=== PATIENT | female | born 2000 | race Caucasian/White ===

== ENCOUNTER 2022-07-23 01:15 | Inpatient (IN) ==
[2022-07-23] MEDS ORDERED: LIDOCAINE 1% LOCAL 20 ML VIAL INFIL PRN (02:50)
[2022-07-23] MEDS ORDERED: OXYTOCIN 30 UNITS/500 ML BAG IV PRN ×3 (02:50→20:44)
--- NOTE | 2022-07-23 03:12 | History & Physical Report ---
Date of Service July 23, 2022 Assessment & Plan (1) SROM (spontaneous rupture of membranes): (2) Encounter for trial of labor: Plan 21 yo at 40 1/7 wga is admitted w/ SROM VSS Fetus cat 1 SROM - pt had noted that she had desired during pnc. Reviewed tolac consent including 1% risk of uterine rupture and potential catastrophic consequences following. Reviewed tolac vs repeat CS after initial review of tolac consent. Reviewed if does desire tolac, she is certainly able to change her mind at any point and opt for CS as well. After extensive discussion with pt and fob, pt opted for trial of labor. Consent signed GBS neg epidural PRN History of Present Illness Chief Complaint: ROM Primary Care Provider: JACKIE PCP 21 yo at 40 1/7 wga presents w/ c/o LOF since 1145pm. Was sleeping and noted a gush of fluid and has continued leaking since then. +FM, denies VB. Did have q10min ctx prior to ROM, continues to have q10 but more painful PNI: CSx1, confirmed LTCS LSIL pap at [facility] Past [facility] HX: G1 2020, pLTCS at 35 wks due to BPP /8 G2 current denies hx STIs 12/2021 LSIL Allergies Allergy/AdvReac Type Severity Reaction Status Date / Time No Known Allergies Allergy Verified 07/22/22 08:39 Home Medications Medication Instructions Recorded Confirmed Type prenat.vits,nancy,[id number] 1 tab PO HS 12/02/21 07/23/22 History promethazine 25 mg tablet 25 mg PO Q6H PRN nausea and 12/05/21 07/23/22 Rx vomiting #20 tabs ondansetron 4 mg disintegrating 4 mg PO Q6H PRN nausea and 12/06/21 07/23/22 Rx tablet vomiting #12 tabs albuterol sulfate 90 mcg/actuation 1 - 2 inh inhalation UD PRN ASTHMA 07/12/22 07/23/22 History aerosol inhaler ferrous sulfate 325 mg (65 mg 325 mg PO QPM 07/12/22 07/23/22 History iron) tablet (iron) Patient History Medical History Asthma Low iron borderline Surgical History History of placement of ear tubes Hx of section Status post colposcopy Family History Mother Diabetes Grandfather (Maternal) Diabetes Grandfather (Paternal) Diabetes Social History Smoking Status: Never smoker Second Hand Exposure: No; Do You Dip or Chew Tobacco: No; Hx Alcohol Use: No Hx Substance Use: No Preferred Language: Bahamian Communication Ability: Effective 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 Other Information That Helps Us Care for You: No Feels Safe at Home: Yes Safety Concerns: Feels Safe At This Time Assistive Devices: Glasses Physical Exam Genitourinary: OB Exam Abdomen: + vertex Manual OB Exam: + cervical dilation (1.5), + cervical effacement 50%, + station -2 and + amniotic fluid (+nitrazine, pooling, ferning) OB Exam Monitor Tracing: + external FHT monit or used, + external uterine monitor used (q9-10) and + category I (140/mod/+accel/-decel) Results & Data Vital Signs (Past 12 Hours) Vital Signs Temp Pulse BP 07/23/22 01:41 98.2 F 07/23/22 02:01 108 H 118/74 Laboratory Results OB Labs: Blood Type A Positive 12/15/21 Antibody Screen NEGATIVE 12/15/21 Hemoglobin 11.4 g/dl (12.0-16.0) L 07/09/22 Hematocrit 33.6 % (37.0-47.0) L 07/09/22 Mean Corpuscular Volume 88.2 fL (80.0-100.0) 07/09/22 Platelet Count 203 K/uL (130-400) 07/09/22 Rubella IgG Antibody Immune (Immune) 12/15/21 Rapid Plasma Reagin Nonreactive (Nonreactive) 12/15/21 Hepatitis B Surface Antigen. NON-REACTIVE (NON-REACTIVE) 12/15/21 Hepatitis C Antibody (EIA) NON-REACTIVE (NON-REACTIVE) 12/15/21 HIV (1&2) Ag and Ab Confirmation NON-REACTIVE (NON-REACTIVE) 12/15/21 Glucose 1 Hour 50 gm Load 109 mg/dl (70-130) 04/25/22 Maternal Serum Alpha Fetoprotein 39.8 ng/mL 02/14/22 OB Optional Labs: Chlamydia trachomatis RNA Not Detected (NotDetected) 12/15/21 Neisseria gonorrhoeae RNA Not Detected (NotDetected) 12/15/21 Alpha Fetoprotein Triple Screen SEE NOTE 02/14/22 low risk cfdna neg cf/sma GBS neg Diagnostic Findings ant plac Coding Level of Care Code None Diagnoses SROM (spontaneous rupture of membranes) Encounter for trial of labor
[2022-07-23 03:42] LABS: Hematocrit (blood only) 33.6 % (37.0-47.0); Hemoglobin 11.8 g/dl (12.0-16.0); Mean Corpuscular Hemoglobin 31.1 pg (25.0-34.0); Mean Corpuscular Hgb Conc 35.1 g/dL (32.0-36.0); Mean Corpuscular Volume 88.7 fL (80.0-100.0); Mean Platelet Volume 10.9 fL (9.4-12.4); Platelet Count 217 K/uL (130-400); RDW Coefficient of Variation 15.6 % (11.5-14.5); RDW Standard Deviation 50.6 fL (36.4-46.3); Red Blood Count 3.79 M/uL (4.20-5.40); White Blood Count 8.96 K/ul (4.8-10.8)
[2022-07-23] MEDS: LACTATED RINGER'S 1,000 ML IV PRN ×3 (06:06→12:34)
[2022-07-23] MEDS ORDERED: SODIUM CHLORIDE 0.9% PF INJ 10 ML VIAL ONE (06:11)
[2022-07-23] MEDS ORDERED: fentaNYL citrate PF 100 MCG/2 ML VIAL ONE (06:11)
[2022-07-23] MEDS ORDERED: ePHEDrine sulfate 50 MG/ML AMP ONE (06:12)
[2022-07-23] MEDS ORDERED: LIDOCAINE 2%/EPINEPHRINE 1:200,000 20 ML PF ONE (06:12)
[2022-07-23] MEDS ORDERED: BUPIVACAINE 0.25% PF 30 ML VIAL ONE (06:12)
[2022-07-23] MEDS ORDERED: fentaNYL 2MCG/ML ROPIVACAINE 1.25MG/ML 100 ML BAG EPI ONE (06:12)
--- NOTE | 2022-07-23 07:01 | Anesthesiology Consultation ---
Date of Service July 23, 2022 Assessment & Plan Chart Review Chart Review: Acceptable Risk for Surgery, Patient NOT seen in Pre Admission Testing and Acceptable Risk for Labor Epidural Consults Requested none ASA ASA2 Proposed Anesthesia Anesthesia Type: Labor Epidural and CSE Risk / Benefits Reviewed With: PT / POA / Parent / Guardian, Accepts Plan and Informed Consent Obtained History Height/Weight Height: 5 ft Weight: 75.75 kg Allergies Allergy/AdvReac Type Severity Reaction Status Date / Time No Known Allergies Allergy Verified 07/22/22 08:39 Medications Home Medications Medication Instructions Recorded Confirmed Last Taken prenat.vits,nancy,[id number] 1 tab PO HS 12/02/21 07/23/22 07/16/22 22:30 promethazine 25 mg tablet 25 mg PO Q6H PRN nausea and 12/05/21 07/23/22 Unknown vomiting #20 tabs ondansetron 4 mg disintegrating 4 mg PO Q6H PRN nausea and 12/06/21 07/23/22 Unknown tablet vomiting #12 tabs albuterol sulfate 90 mcg/actuation 1 - 2 inh inhalation UD PRN ASTHMA 07/12/22 07/23/22 Unknown aerosol inhaler ferrous sulfate 325 mg (65 mg 325 mg PO QPM 07/12/22 07/23/22 07/16/22 22:30 iron) tablet (iron) Active Medications Generic Name Dose Route Start Last Admin Trade Name Freq PRN Reason Stop Dose Admin Lactated Ringer's 1,000 mls @ 125 mls/hr 07/23/22 02:50 07/23/22 06:45 Lr IV 07/25/22 02:49 125 mls/hr .Q8H PRN Infusion L&D Protocol Protocol NPO Date Last Intake of Fluids: 07/23/22 Time Last Intake of Fluids: 06:30 Date Last Intake of Solids: 07/22/22 Time Last Intake of Solids: 22:00 Past Medical History Medical History Asthma Low iron borderline Exercise / Class Metabolic Activity II 4-5 Yardwork/Stairs/Walk up hill Past Family History Family History Mother Diabetes Grandfather (Maternal) Diabetes Grandfather (Paternal) Diabetes Past Surgical History Surgical History History of placement of ear tubes Hx of section Status post colposcopy Past Anesthesia History No Hx of Anesthesia Complications and No Family Hx of Anesthesia Complications History of PONV No Hx of PONV and No Hx of Motion Sickness Social History Smoking Status: Never smoker Do You Dip or Chew Tobacco: No Hx Alcohol Use: No Hx Substance Use: No substance use type: does not use Physical Exam Vital Signs Last Vital Signs Temp 36.8 C 07/23/22 06:25 Pulse 82 07/23/22 06:54 BP 122/70 07/23/22 06:36 Pulse Ox 99 07/23/22 06:54 Constitutional + obese; no acute distress ENMT Mouth: no dentition abnormality Thyromental Distance: < 3.5 Finger Breadths Mallampati Class: II Neck normal visual inspection and trachea midline; neck extension not limited Respiratory normal respiratory effort Auscultation: lungs clear to auscultation bilaterally Cardiovascular Rate/Rhythm: regular rate and regular rhythm Heart Sounds: no murmur Musculoskeletal Spine: lumbar spine normal to inspection; normal cervical ROM and no pain with cervical ROM Extremities: full ROM of extremities Neurologic moves all extremities Motor/Sensory: no sensory deficit Psychiatric Orientation: alert and oriented x 3 Testing Laboratory Results 07/23/22 03:07 Blood Type A Positive 07/23/22 03:07 Antibody Screen NEGATIVE 07/23/22 03:07
[2022-07-23] MEDS ORDERED: BUPIVACAINE 0.25% PF 30 ML VIAL EPI PRN (07:34)
[2022-07-23] MEDS ORDERED: NALOXONE HCL 0.4 MG/1 ML VIAL/CARP IV PRN (07:34)
[2022-07-23] MEDS ORDERED: ROPIVACAINE 0.5% PF 5 MG/ML 20 ML VIAL EPI PRN (07:34)
[2022-07-23] MEDS ORDERED: fentaNYL citrate PF 100 MCG/2 ML VIAL EPI PRN (07:34)
[2022-07-23] MEDS ORDERED: SODIUM CHLORIDE 0.9% PF INJ 10 ML VIAL EPI PRN (07:34)
[2022-07-23] MEDS ORDERED: fentaNYL citrate PF 100 MCG/2 ML VIAL EPI STA (07:34)
[2022-07-23] MEDS ORDERED: fentaNYL 2MCG/ML ROPIVACAINE 1.25MG/ML 100 ML BAG EPI PRN (07:34)
[2022-07-23] MEDS ORDERED: ePHEDrine sulfate 50 MG/ML AMP IV PRN (07:34)
[2022-07-23] MEDS ORDERED: diphenhydrAMINE 50 MG/ML VIAL IV PRN (07:34)
[2022-07-23] MEDS ORDERED: LIDOCAINE 2%/EPINEPHRINE 1:200,000 20 ML PF EPI STA (07:34)
[2022-07-23] MEDS ORDERED: NALOXONE HCL 1 MG in SODIUM CHLORIDE 0.9% 1000ML 1,000 ML IV PRN (07:34)
[2022-07-23] MEDS ORDERED: BUPIVACAINE 0.25% PF 30 ML VIAL EPI STA (07:34)
[2022-07-23] MEDS ORDERED: SODIUM CHLORIDE 0.9% PF INJ 10 ML VIAL EPI STA (07:34)
[2022-07-23] MEDS ORDERED: NALBUPHINE HCL INJ 10 MG/ML AMP IV PRN (07:34)
[2022-07-23] MEDS ORDERED: LIDOCAINE 2% MPF LOCAL 5 ML VIAL EPI PRN (07:34)
--- NOTE | 2022-07-23 08:09 | Labor Progress Brief Note ---
Date of Service July 23, 2022 Subjective comfortable w/ epidural Assessment & Plan (1) SROM (spontaneous rupture of membranes): (2) Encounter for trial of labor: Plan 21 yo at 40 1/7 wga is admitted w/ SROM VSS Fetus cat 1 SROM - small progress from earlier, pt did get more uncomfortable w/ ctx before so got epidural and they are starting to get closer now. Will discuss pit w/ oncoming provider GBS neg epidural in place Admission and Anticipated Discharge Date Admission Date: July 23, 2022 Physical Exam Genitourinary: Manual OB Exam: + cervical dilation (tight 2-3), + cervical effacement 70% and + station -2 OB Exam Monitor Tracing: + external FHT monitor used, + external uterine monitor used (q8) and + category I (140/mod/+accel/-decel) Results & Data Vital Signs (Past 12 Hours) Vital Signs Temp Pulse BP Pulse Ox 07/23/22 01:41 98.2 F 07/23/22 08:04 91 H 98 07/23/22 07:59 91 H 99 07/23/22 07:56 90 113/59 L 07/23/22 07:54 93 H 99 07/23/22 07:49 82 99 07/23/22 07:47 88 108/55 L 07/23/22 07:44 94 H 100 07/23/22 07:39 90 98 07/23/22 07:36 97 H 107/60 07/23/22 07:34 96 H 107/56 L 98 07/23/22 07:32 86 106/56 L 07/23/22 07:30 93 H 105/59 L 07/23/22 07:29 98 H 99 07/23/22 07:28 93 H 100/56 L 07/23/22 07:26 93 H 102/60 07/23/22 07:24 93 H 106/61 99 07/23/22 07:22 95 H 102/58 L 07/23/22 07:19 89 99 07/23/22 07:20 76 106/61 07/23/22 07:18 85 112/60 07/23/22 07:16 88 120/76 07/23/22 07:14 92 H 120/77 99 07/23/22 07:09 106 H 99 07/23/22 07:04 102 H 98 07/23/22 06:59 88 98 07/23/22 06:54 82 99 07/23/22 06:49 89 98 07/23/22 06:44 100 H 98 07/23/22 06:39 94 H 98 07/23/22 06:36 84 122/70 07/23/22 06:34 86 99 07/23/22 06:25 98.2 F 07/23/22 06:29 90 98 07/23/22 06:24 82 99 07/23/22 06:19 85 100 07/23/22 04:15 98.2 F 07/23/22 02:01 108 H 118/74 Coding Level of Care Code None Diagnoses SROM (spontaneous rupture of membranes) Encounter for trial of labor
--- NOTE | 2022-07-23 08:46 | Labor Progress Brief Note ---
Date of Service July 23, 2022 Subjective comfortable with epidural Assessment & Plan (1) Encounter for trial of labor: Plan Discussed current situation. Can expectantly manage but unable to know how long until active labor ensues. Discussed pitocin augmentation and r/b/se associated with this. Not contraindicated in DEEPA. Continue to monitor closely . Discussed the potential need for iupc. Patient agreeable to pit. fetus categ ory one. Admission and Anticipated Discharge Date Admission Date: July 23, 2022 Physical Exam Physical Exam: cx--deferred as just recetnly checked toco--q5-8min efm--145 with mod variability, accels to 160s, no decels Results & Data Vital Signs (Past 12 Hours) Vital Signs Temp Pulse Resp BP Pulse Ox 07/23/22 01:41 36.8 C 07/23/22 08:39 87 98 07/23/22 08:36 100 H 104/65 07/23/22 08:34 100 H 97 07/23/22 08:29 89 97 07/23/22 08:26 101 H 102/57 L 07/23/22 08:24 87 98 07/23/22 08:19 85 97 07/23/22 08:16 92 H 105/57 L 07/23/22 08:14 100 H 98 07/23/22 08:09 78 96 07/23/22 07:00 18 07/23/22 07:00 36.8 C 18 07/23/22 08:06 93 H 110/60 07/23/22 08:04 91 H 98 07/23/22 07:59 91 H 99 07/23/22 07:56 90 113/59 L 07/23/22 07:54 93 H 99 07/23/22 07:49 82 99 07/23/22 07:47 88 108/55 L 07/23/22 07:44 94 H 100 07/23/22 07:39 90 98 07/23/22 07:36 97 H 107/60 07/23/22 07:34 96 H 107/56 L 98 07/23/22 07:32 86 106/56 L 07/23/22 07:30 93 H 18 105/59 L 07/23/22 07:29 98 H 99 07/23/22 07:28 93 H 100/56 L 07/23/22 07:26 93 H 102/60 07/23/22 07:24 93 H 106/61 99 07/23/22 07:22 95 H 102/58 L 07/23/22 07:19 89 99 07/23/22 07:20 76 106/61 07/23/22 07:18 85 112/60 07/23/22 07:16 88 120/76 07/23/22 07:14 92 H 120/77 99 07/23/22 07:09 106 H 99 07/23/22 07:04 102 H 98 07/23/22 06:59 88 98 07/23/22 06:54 82 99 07/23/22 06:49 89 98 07/23/22 06:44 100 H 98 07/23/22 06:39 94 H 98 07/23/22 06:36 84 122/70 07/23/22 06:34 86 99 07/23/22 06:25 36.8 C 07/23/22 06:29 90 98 07/23/22 06:24 82 99 07/23/22 06:19 85 100 07/23/22 04:15 36.8 C 07/23/22 02:01 108 H 118/74 Coding Level of Care Code None Diagnoses Encounter for trial of labor
--- NOTE | 2022-07-23 13:46 | Communication Note ---
Date of Service: July 23, 2022 @ 2988 , patient's epidural catheter was bolused w/ 12 ml 0.17% bupivacaine + 100 mcgs fentanyl for pain 8-12/20. Negative aspiration w/ incremental injection s.
--- NOTE | 2022-07-23 13:49 | Labor Progress Brief Note ---
Date of Service July 23, 2022 Subjective comfortable after redose Assessment & Plan (1) Encounter for trial of labor: Plan continue current management. Fetus category one. Admission and Anticipated Discharge Date Admission Date: July 23, 2022 Physical Exam Physical Exam: cx--5-6/90/-2 toco--q2-5min, pit at 13 efm--140s with mod variability, accels to 160s, no decels Results & Data Vital Signs (Past 12 Hours) Vital Signs Temp Pulse Resp BP Pulse Ox 07/23/22 13:44 104 H 99 07/23/22 13:39 99 H 99 07/23/22 13:37 109 H 104/57 L 07/23/22 13:34 90 98 07/23/22 13:29 89 97 07/23/22 13:24 90 98 07/23/22 13:19 93 H 97 07/23/22 13:14 92 H 97 07/23/22 13:09 98 H 98 07/23/22 13:07 95 H 104/62 07/23/22 13:04 91 H 98 07/23/22 12:59 97 H 97 07/23/22 12:54 90 98 07/23/22 12:52 97 H 125/66 07/23/22 12:49 92 H 97 07/23/22 12:44 98 H 98 07/23/22 12:39 95 H 99 07/23/22 12:38 91 H 123/78 07/23/22 12:34 87 98 07/23/22 12:30 20 07/23/22 12:30 20 07/23/22 12:29 86 97 07/23/22 12:24 96 H 98 07/23/22 12:23 93 H 114/76 07/23/22 12:19 95 H 97 07/23/22 12:14 95 H 98 07/23/22 12:09 92 H 97 07/23/22 12:07 99 H 112/75 07/23/22 12:04 88 99 07/23/22 12:00 20 07/23/22 12:00 20 07/23/22 11:59 92 H 97 07/23/22 11:30 18 07/23/22 11:30 18 07/23/22 11:54 86 99 07/23/22 11:53 92 H 114/76 07/23/22 11:49 94 H 99 07/23/22 11:44 89 98 07/23/22 11:39 82 98 07/23/22 11:37 85 110/63 07/23/22 11:34 85 99 07/23/22 11:29 87 99 07/23/22 11:24 86 99 07/23/22 11:22 82 102/57 L 07/23/22 11:19 89 99 07/23/22 11:14 83 99 07/23/22 11:09 84 98 07/23/22 11:07 80 97/55 L 07/23/22 11:04 80 98 07/23/22 11:00 18 07/23/22 11:00 36.8 C 18 07/23/22 10:59 80 98 07/23/22 10:30 18 07/23/22 10:30 18 07/23/22 10:56 80 98/54 L 07/23/22 10:54 81 99 07/23/22 10:49 76 99 07/23/22 10:47 77 104/57 L 07/23/22 10:44 80 99 07/23/22 10:39 86 99 07/23/22 10:37 82 116/71 07/23/22 10:34 80 99 07/23/22 10:29 96 H 100 07/23/22 10:26 75 102/54 L 07/23/22 10:24 82 99 07/23/22 10:19 83 99 07/23/22 10:16 86 93/52 L 07/23/22 10:14 83 98 07/23/22 10:00 16 07/23/22 10:00 16 07/23/22 10:09 83 99 07/23/22 10:08 86 96/56 L 07/23/22 10:04 84 99 07/23/22 09:59 95 H 99 07/23/22 09:57 85 108/65 07/23/22 09:30 18 07/23/22 09:30 18 07/23/22 09:54 91 H 96 07/23/22 09:49 78 97 07/23/22 09:46 87 115/67 07/23/22 09:44 87 97 07/23/22 09:39 85 97 07/23/22 09:36 88 107/62 07/23/22 09:34 92 H 98 07/23/22 09:29 85 97 07/23/22 09:26 92 H 107/64 07/23/22 09:24 89 98 07/23/22 09:19 97 H 98 07/23/22 09:17 84 105/64 07/23/22 09:14 85 98 07/23/22 09:00 18 07/23/22 09:00 36.6 C 18 07/23/22 09:09 105 H 98 07/23/22 09:07 100 H 119/78 07/23/22 09:04 87 100 07/23/22 08:59 94 H 99 07/23/22 08:57 84 109/64 07/23/22 08:54 99 H 98 07/23/22 08:49 87 98 07/23/22 08:46 94 H 104/64 07/23/22 08:30 18 07/23/22 08:30 18 07/23/22 08:44 107 H 98 07/23/22 08:00 16 07/23/22 08:00 16 07/23/22 08:39 87 98 07/23/22 08:36 100 H 104/65 07/23/22 08:34 100 H 97 07/23/22 08:29 89 97 07/23/22 08:26 101 H 102/57 L 07/23/22 08:24 87 98 07/23/22 08:19 85 97 07/23/22 08:16 92 H 105/57 L 07/23/22 08:14 100 H 98 07/23/22 08:09 78 96 07/23/22 07:00 18 07/23/22 07:00 36.8 C 18 07/23/22 08:06 93 H 110/60 07/23/22 08:04 91 H 98 07/23/22 07:59 91 H 99 07/23/22 07:56 90 113/59 L 07/23/22 07:54 93 H 99 07/23/22 07:49 82 99 07/23/22 07:47 88 108/55 L 07/23/22 07:44 94 H 100 07/23/22 07:39 90 98 07/23/22 07:36 97 H 107/60 07/23/22 07:34 96 H 107/56 L 98 05/13/23 07:32 86 106/56 L 07/23/22 07:30 93 H 18 105/59 L 07/23/22 07:29 98 H 99 07/23/22 07:28 93 H 100/56 L 07/23/22 07:26 93 H 102/60 07/23/22 07:24 93 H 106/61 99 07/23/22 07:22 95 H 102/58 L 07/23/22 07:19 89 99 07/23/22 07:20 76 106/61 07/23/22 07:18 85 112/60 07/23/22 07:16 88 120/76 07/23/22 07:14 92 H 120/77 99 07/23/22 07:09 106 H 99 07/23/22 07:04 102 H 98 07/23/22 06:59 88 98 07/23/22 06:54 82 99 07/23/22 06:49 89 98 07/23/22 06:44 100 H 98 07/23/22 06:39 94 H 98 07/23/22 06:36 84 122/70 07/23/22 06:34 86 99 07/23/22 06:25 36.8 C 07/23/22 06:29 90 98 07/23/22 06:24 82 99 07/23/22 06:19 85 100 07/23/22 04:15 36.8 C 07/23/22 02:01 108 H 118/74 Coding Level of Care Code None Diagnoses Encounter for trial of labor
[2022-07-23] MEDS: ONDANSETRON INJ 2 MG/ML 2 ML VIAL IV PRN ×2 (14:27→19:55)
--- NOTE | 2022-07-23 16:03 | Labor Progress Brief Note ---
Date of Service July 23, 2022 Subjective comfortable Assessment & Plan (1) Encounter for trial of labor: Plan continue current management. iupc placed to determine mvus. Making slow but positive changed. fetus category one. Admission and Anticipated Discharge Date Admission Date: July 23, 2022 Physical Exam Physical Exam: cx--7/100/-2 iupc placed, pit at 19 efm--150s with mod varaiblity, accels to 170s, no decels. Results & Data Vital Signs (Past 12 Hours) Vital Signs Temp Pulse Resp BP Pulse Ox 07/23/22 15:59 109 H 97 07/23/22 15:54 98 07/23/22 15:54 99 H 07/23/22 15:54 88 108/59 L 07/23/22 15:49 106 H 97 07/23/22 15:44 94 H 96 07/23/22 15:39 105 H 97 07/23/22 15:34 107 H 97 07/23/22 15:30 20 07/23/22 15:30 20 07/23/22 15:29 88 97 07/23/22 15:24 91 H 95 07/23/22 15:22 87 113/57 L 07/23/22 15:19 92 H 96 07/23/22 15:14 87 95 07/23/22 15:09 88 96 07/23/22 15:07 87 105/61 07/23/22 14:30 18 07/23/22 14:30 18 07/23/22 15:00 20 07/23/22 15:00 37.0 C 20 07/23/22 15:04 95 H 95 07/23/22 14:59 81 96 07/23/22 14:54 94 H 96 07/23/22 14:52 83 107/60 07/23/22 14:49 86 96 07/23/22 14:44 92 H 98 07/23/22 14:00 20 07/23/22 14:00 20 07/23/22 14:39 92 H 96 07/23/22 14:38 88 140/62 07/23/22 14:34 89 97 07/23/22 14:29 101 H 98 07/23/22 14:24 101 H 99 07/23/22 14:23 92 H 122/74 07/23/22 14:19 98 H 99 07/23/22 13:30 20 05 13:30 20 05 13:01 20 05 13:01 36.7 C 20 07/23/22 14:14 101 H 99 07/23/22 14:09 101 H 128/77 99 07/23/22 14:04 107 H 99 07/23/22 13:59 98 H 98 05 13:54 107 H 98 07/23/22 13:52 96 H 112/62 07/23/22 13:49 99 H 98 07/23/22 13:44 104 H 99 07/23/22 13:39 99 H 99 07/23/22 13:37 109 H 104/57 L 07/23/22 13:34 90 98 07/23/22 13:29 89 97 07/23/22 13:24 90 98 07/23/22 13:19 93 H 97 07/23/22 13:14 92 H 97 07/23/22 13:09 98 H 98 07/23/22 13:07 95 H 104/62 05 13:04 91 H 98 07/23/22 12:59 97 H 97 07/23/22 12:54 90 98 07/23/22 12:52 97 H 125/66 07/23/22 12:49 92 H 97 07/23/22 12:44 98 H 98 07/23/22 12:39 95 H 99 07/23/22 12:38 91 H 123/78 07/23/22 12:34 87 98 07/23/22 12:30 20 07/23/22 12:30 20 07/23/22 12:29 86 97 07/23/22 12:24 96 H 98 07/23/22 12:23 93 H 114/76 05 12:19 95 H 97 07/23/22 12:14 95 H 98 07/23/22 12:09 92 H 97 07/23/22 12:07 99 H 112/75 05 12:04 88 99 07/23/22 12:00 20 07/23/22 12:00 20 07/23/22 11:59 92 H 97 07/23/22 11:30 18 05 11:30 18 07/23/22 11:54 86 99 05 11:53 92 H 114/76 07/23/22 11:49 94 H 99 07/23/22 11:44 89 98 07/23/22 11:39 82 98 07/23/22 11:37 85 110/63 07/23/22 11:34 85 99 07/23/22 11:29 87 99 07/23/22 11:24 86 99 07/23/22 11:22 82 102/57 L 07/23/22 11:19 89 99 07/23/22 11:14 83 99 07/23/22 11:09 84 98 07/23/22 11:07 80 97/55 L 07/23/22 11:04 80 98 07/23/22 11:00 18 07/23/22 11:00 36.8 C 18 07/23/22 10:59 80 98 07/23/22 10:30 18 07/23/22 10:30 18 07/23/22 10:56 80 98/54 L 07/23/22 10:54 81 99 07/23/22 10:49 76 99 07/23/22 10:47 77 104/57 L 07/23/22 10:44 80 99 07/23/22 10:39 86 99 07/23/22 10:37 82 116/71 07/23/22 10:34 80 99 07/23/22 10:29 96 H 100 07/23/22 10:26 75 102/54 L 07/23/22 10:24 82 99 07/23/22 10:19 83 99 07/23/22 10:16 86 93/52 L 07/23/22 10:14 83 98 07/23/22 10:00 16 07/23/22 10:00 16 07/23/22 10:09 83 99 07/23/22 10:08 86 96/56 L 07/23/22 10:04 84 99 07/23/22 09:59 95 H 99 07/23/22 09:57 85 108/65 07/23/22 09:30 18 07/23/22 09:30 18 07/23/22 09:54 91 H 96 07/23/22 09:49 78 97 07/23/22 09:46 87 115/67 07/23/22 09:44 87 97 07/23/22 09:39 85 97 07/23/22 09:36 88 107/62 07/23/22 09:34 92 H 98 07/23/22 09:29 85 97 07/23/22 09:26 92 H 107/64 07/23/22 09:24 89 98 07/23/22 09:19 97 H 98 07/23/22 09:17 84 105/64 07/23/22 09:14 85 98 07/23/22 09:00 18 07/23/22 09:00 36.6 C 18 07/23/22 09:09 105 H 98 07/23/22 09:07 100 H 119/78 07/23/22 09:04 87 100 07/23/22 08:59 94 H 99 07/23/22 08:57 84 109/64 07/23/22 08:54 99 H 98 07/23/22 08:49 87 98 07/23/22 08:46 94 H 104/64 07/23/22 08:30 18 07/23/22 08:30 18 07/23/22 08:44 107 H 98 07/23/22 08:00 16 07/23/22 08:00 16 07/23/22 08:39 87 98 07/23/22 08:36 100 H 104/65 07/23/22 08:34 100 H 97 07/23/22 08:29 89 97 07/23/22 08:26 101 H 102/57 L 07/23/22 08:24 87 98 07/23/22 08:19 85 97 07/23/22 08:16 92 H 105/57 L 07/23/22 08:14 100 H 98 07/23/22 08:09 78 96 07/23/22 07:00 18 07/23/22 07:00 36.8 C 18 07/23/22 08:06 93 H 110/60 07/23/22 08:04 91 H 98 07/23/22 07:59 91 H 99 07/23/22 07:56 90 113/59 L 07/23/22 07:54 93 H 99 07/23/22 07:49 82 99 07/23/22 07:47 88 108/55 L 07/23/22 07:44 94 H 100 07/23/22 07:39 90 98 07/23/22 07:36 97 H 107/60 05/23 07:34 96 H 107/56 L 98 07/23/22 07:32 86 106/56 L 07/23/22 07:30 93 H 18 105/59 L 07/23/22 07:29 98 H 99 07/23/22 07:28 93 H 100/56 L 07/23/22 07:26 93 H 102/60 07/23/22 07:24 93 H 106/61 99 07/23/22 07:22 95 H 102/58 L 07/23/22 07:19 89 99 07/23/22 07:20 76 106/61 07/23/22 07:18 85 112/60 07/23/22 07:16 88 120/76 07/23/22 07:14 92 H 120/77 99 07/23/22 07:09 106 H 99 07/23/22 07:04 102 H 98 07/23/22 06:59 88 98 07/23/22 06:54 82 99 07/23/22 06:49 89 98 07/23/22 06:44 100 H 98 07/23/22 06:39 94 H 98 07/23/22 06:36 84 122/70 07/23/22 06:34 86 99 07/23/22 06:25 36.8 C 07/23/22 06:29 90 98 07/23/22 06:24 82 99 07/23/22 06:19 85 100 07/23/22 04:15 36.8 C Coding Level of Care Code None Diagnoses Encounter for trial of labor
--- NOTE | 2022-07-23 17:33 | Labor Progress Brief Note ---
Date of Service July 23, 2022 Subjective Patient feeling pressure in her bottom manny with contraction. Assessment & Plan (1) Encounter for trial of labor: Plan continues to make progress, labor down. fetus category one. Will push in about an hour. Admission and Anticipated Discharge Date Admission Date: July 23, 2022 Physical Exam Physical Exam: cx--small bit of cx to the right, 0 station toco--q2-4min, pit at 21, Mvus about 180s efm--150s with mod variability, early decels with some contractions., + accels, +scalp stim Results & Data Vital Signs (Past 12 Hours) Vital Signs Temp Pulse Resp BP Pulse Ox 07/23/22 17:29 117 H 98 07/23/22 17:24 96 H 99 07/23/22 17:23 111 H 119/64 07/23/22 17:19 93 H 99 07/23/22 17:00 20 07/23/22 17:00 37.0 C 20 07/23/22 17:14 103 H 98 07/23/22 17:09 110 H 99 07/23/22 17:08 100 H 117/67 07/23/22 17:04 90 99 07/23/22 16:59 110 H 98 07/23/22 16:54 91 H 98 07/23/22 16:53 82 103/55 L 07/23/22 16:49 90 97 07/23/22 16:44 96 H 96 07/23/22 16:39 88 97 07/23/22 16:37 100 H 100/57 L 07/23/22 16:30 20 07/23/22 16:30 20 07/23/22 16:34 88 97 07/23/22 16:00 20 07/23/22 16:00 20 07/23/22 16:29 103 H 98 07/23/22 16:24 94 H 97 07/23/22 16:22 96 H 103/57 L 07/23/22 16:19 86 98 07/23/22 16:14 91 H 97 07/23/22 16:09 108 H 98 07/23/22 16:08 92 H 97/53 L 07/23/22 16:04 92 H 98 07/23/22 15:59 109 H 97 07/23/22 15:54 98 05/13/23 15:54 99 H 07/23/22 15:54 88 108/59 L 07/23/22 15:49 106 H 97 07/23/22 15:44 94 H 96 07/23/22 15:39 105 H 97 07/23/22 15:34 107 H 97 07/23/22 15:30 20 07/23/22 15:30 20 07/23/22 15:29 88 97 07/23/22 15:24 91 H 95 07/23/22 15:22 87 113/57 L 07/23/22 15:19 92 H 96 07/23/22 15:14 87 95 07/23/22 15:09 88 96 07/23/22 15:07 87 105/61 07/23/22 14:30 18 07/23/22 14:30 18 07/23/22 15:00 20 07/23/22 15:00 37.0 C 20 07/23/22 15:04 95 H 95 07/23/22 14:59 81 96 07/23/22 14:54 94 H 96 07/23/22 14:52 83 107/60 07/23/22 14:49 86 96 07/23/22 14:44 92 H 98 07/23/22 14:00 20 07/23/22 14:00 20 07/23/22 14:39 92 H 96 07/23/22 14:38 88 140/62 07/23/22 14:34 89 97 07/23/22 14:29 101 H 98 07/23/22 14:24 101 H 99 07/23/22 14:23 92 H 122/74 07/23/22 14:19 98 H 99 07/23/22 13:30 20 07/23/22 13:30 20 07/23/22 13:01 20 07/23/22 13:01 36.7 C 20 07/23/22 14:14 101 H 99 07/23/22 14:09 101 H 128/77 99 07/23/22 14:04 107 H 99 07/23/22 13:59 98 H 98 07/23/22 13:54 107 H 98 07/23/22 13:52 96 H 112/62 07/23/22 13:49 99 H 98 07/23/22 13:44 104 H 99 07/23/22 13:39 99 H 99 07/23/22 13:37 109 H 104/57 L 07/23/22 13:34 90 98 05 13:29 89 97 07/23/22 13:24 90 98 07/23/22 13:19 93 H 97 07/23/22 13:14 92 H 97 07/23/22 13:09 98 H 98 07/23/22 13:07 95 H 104/62 07/23/22 13:04 91 H 98 07/23/22 12:59 97 H 97 07/23/22 12:54 90 98 07/23/22 12:52 97 H 125/66 07/23/22 12:49 92 H 97 07/23/22 12:44 98 H 98 07/23/22 12:39 95 H 99 07/23/22 12:38 91 H 123/78 07/23/22 12:34 87 98 07/23/22 12:30 20 07/23/22 12:30 20 07/23/22 12:29 86 97 07/23/22 12:24 96 H 98 07/23/22 12:23 93 H 114/76 07/23/22 12:19 95 H 97 07/23/22 12:14 95 H 98 07/23/22 12:09 92 H 97 07/23/22 12:07 99 H 112/75 07/23/22 12:04 88 99 07/23/22 12:00 20 07/23/22 12:00 20 07/23/22 11:59 92 H 97 07/23/22 11:30 18 07/23/22 11:30 18 07/23/22 11:54 86 99 07/23/22 11:53 92 H 114/76 07/23/22 11:49 94 H 99 07/23/22 11:44 89 98 07/23/22 11:39 82 98 07/23/22 11:37 85 110/63 07/23/22 11:34 85 99 07/23/22 11:29 87 99 07/23/22 11:24 86 99 07/23/22 11:22 82 102/57 L 07/23/22 11:19 89 99 07/23/22 11:14 83 99 07/23/22 11:09 84 98 07/23/22 11:07 80 97/55 L 07/23/22 11:04 80 98 07/23/22 11:00 18 07/23/22 11:00 36.8 C 18 07/23/22 10:59 80 98 07/23/22 10:30 18 07/23/22 10:30 18 07/23/22 10:56 80 98/54 L 07/23/22 10:54 81 99 07/23/22 10:49 76 99 07/23/22 10:47 77 104/57 L 07/23/22 10:44 80 99 07/23/22 10:39 86 99 07/23/22 10:37 82 116/71 07/23/22 10:34 80 99 07/23/22 10:29 96 H 100 07/23/22 10:26 75 102/54 L 07/23/22 10:24 82 99 07/23/22 10:19 83 99 07/23/22 10:16 86 93/52 L 07/23/22 10:14 83 98 07/23/22 10:00 16 07/23/22 10:00 16 07/23/22 10:09 83 99 07/23/22 10:08 86 96/56 L 07/23/22 10:04 84 99 07/23/22 09:59 95 H 99 07/23/22 09:57 85 108/65 07/23/22 09:30 18 07/23/22 09:30 18 07/23/22 09:54 91 H 96 07/23/22 09:49 78 97 07/23/22 09:46 87 115/67 07/23/22 09:44 87 97 07/23/22 09:39 85 97 07/23/22 09:36 88 107/62 07/23/22 09:34 92 H 98 07/23/22 09:29 85 97 07/23/22 09:26 92 H 107/64 07/23/22 09:24 89 98 07/23/22 09:19 97 H 98 07/23/22 09:17 84 105/64 07/23/22 09:14 85 98 07/23/22 09:00 18 07/23/22 09:00 36.6 C 18 07/23/22 09:09 105 H 98 07/23/22 09:07 100 H 119/78 07/23/22 09:04 87 100 07/23/22 08:59 94 H 99 07/23/22 08:57 84 109/64 07/23/22 08:54 99 H 98 07/23/22 08:49 87 98 07/23/22 08:46 94 H 104/64 07/23/22 08:30 18 07/23/22 08:30 18 07/23/22 08:44 107 H 98 07/23/22 08:00 16 07/23/22 08:00 16 07/23/22 08:39 87 98 07/23/22 08:36 100 H 104/65 07/23/22 08:34 100 H 97 07/23/22 08:29 89 97 07/23/22 08:26 101 H 102/57 L 07/23/22 08:24 87 98 07/23/22 08:19 85 97 07/23/22 08:16 92 H 105/57 L 07/23/22 08:14 100 H 98 07/23/22 08:09 78 96 07/23/22 07:00 18 07/23/22 07:00 36.8 C 18 07/23/22 08:06 93 H 110/60 07/23/22 08:04 91 H 98 07/23/22 07:59 91 H 99 07/23/22 07:56 90 113/59 L 07/23/22 07:54 93 H 99 07/23/22 07:49 82 99 07/23/22 07:47 88 108/55 L 07/23/22 07:44 94 H 100 07/23/22 07:39 90 98 07/23/22 07:36 97 H 107/60 07/23/22 07:34 96 H 107/56 L 98 07/23/22 07:32 86 106/56 L 07/23/22 07:30 93 H 18 105/59 L 07/23/22 07:29 98 H 99 07/23/22 07:28 93 H 100/56 L 07/23/22 07:26 93 H 102/60 07/23/22 07:24 93 H 106/61 99 07/23/22 07:22 95 H 102/58 L 07/23/22 07:19 89 99 07/23/22 07:20 76 106/61 07/23/22 07:18 85 112/60 07/23/22 07:16 88 120/76 07/23/22 07:14 92 H 120/77 99 07/23/22 07:09 106 H 99 07/23/22 07:04 102 H 98 07/23/22 06:59 88 98 07/23/22 06:54 82 99 07/23/22 06:49 89 98 07/23/22 06:44 100 H 98 07/23/22 06:39 94 H 98 07/23/22 06:36 84 122/70 07/23/22 06:34 86 99 07/23/22 06:25 36.8 C 07/23/22 06:29 90 98 07/23/22 06:24 82 99 07/23/22 06:19 85 100 Coding Level of Care Code None Diagnoses Encounter for trial of labor
--- NOTE | 2022-07-23 18:48 | Labor Progress Brief Note ---
Date of Service July 23, 2022 Subjective Needs to push Assessment & Plan (1) Encounter for trial of labor: Plan begin second stage. fetus category one. Admission and Anticipated Discharge Date Admission Date: July 23, 2022 Physical Exam Physical Exam: cx--c/c/0-+1 toco--q3-5min, pit at 21 efm--150s with mod variability, accels to 170s, no decels Results & Data Vital Signs (Past 12 Hours) Vital Signs Temp Pulse Resp BP Pulse Ox 07/23/22 18:44 106 H 98 07/23/22 18:39 102 H 99 07/23/22 18:38 106 H 92 07/23/22 18:37 104 H 125/69 07/23/22 18:34 93 H 98 07/23/22 18:30 18 07/23/22 18:30 18 07/23/22 18:29 107 H 99 07/23/22 18:24 106 H 98 07/23/22 18:23 93 H 133/80 07/23/22 18:19 96 H 100 07/23/22 18:14 101 H 100 07/23/22 18:09 95 H 99 07/23/22 18:08 89 124/70 07/23/22 18:00 20 07/23/22 18:00 20 07/23/22 18:04 104 H 98 07/23/22 18:00 20 07/23/22 18:00 20 07/23/22 17:59 94 H 98 07/23/22 17:54 94 H 99 07/23/22 17:52 96 H 130/65 07/23/22 17:49 100 H 100 07/23/22 17:30 18 07/23/22 17:30 18 07/23/22 17:44 96 H 100 07/23/22 17:39 112 H 99 07/23/22 17:38 100 H 131/81 07/23/22 17:34 106 H 100 07/23/22 17:29 117 H 98 07/23/22 17:24 96 H 99 07/23/22 17:23 111 H 119/64 07/23/22 17:19 93 H 99 07/23/22 17:00 20 07/23/22 17:00 37.0 C 20 07/23/22 17:14 103 H 98 07/23/22 17:09 110 H 99 07/23/22 17:08 100 H 117/67 07/23/22 17:04 90 99 07/23/22 16:59 110 H 98 07/23/22 16:54 91 H 98 07/23/22 16:53 82 103/55 L 07/23/22 16:49 90 97 07/23/22 16:44 96 H 96 07/23/22 16:39 88 97 07/23/22 16:37 100 H 100/57 L 07/23/22 16:30 20 07/23/22 16:30 20 07/23/22 16:34 88 97 07/23/22 16:00 20 07/23/22 16:00 20 07/23/22 16:29 103 H 98 07/23/22 16:24 94 H 97 07/23/22 16:22 96 H 103/57 L 07/23/22 16:19 86 98 07/23/22 16:14 91 H 97 07/23/22 16:09 108 H 98 07/23/22 16:08 92 H 97/53 L 07/23/22 16:04 92 H 98 07/23/22 15:59 109 H 97 07/23/22 15:54 98 07/23/22 15:54 99 H 07/23/22 15:54 88 108/59 L 07/23/22 15:49 106 H 97 07/23/22 15:44 94 H 96 07/23/22 15:39 105 H 97 07/23/22 15:34 107 H 97 07/23/22 15:30 20 07/23/22 15:30 20 07/23/22 15:29 88 97 07/23/22 15:24 91 H 95 07/23/22 15:22 87 113/57 L 07/23/22 15:19 92 H 96 07/23/22 15:14 87 95 07/23/22 15:09 88 96 07/23/22 15:07 87 105/61 07/23/22 14:30 18 07/23/22 14:30 18 07/23/22 15:00 20 07/23/22 15:00 37.0 C 20 07/23/22 15:04 95 H 95 07/23/22 14:59 81 96 07/23/22 14:54 94 H 96 07/23/22 14:52 83 107/60 07/23/22 14:49 86 96 07/23/22 14:44 92 H 98 07/23/22 14:00 20 07/23/22 14:00 20 07/23/22 14:39 92 H 96 07/23/22 14:38 88 140/62 07/23/22 14:34 89 97 07/23/22 14:29 101 H 98 07/23/22 14:24 101 H 99 07/23/22 14:23 92 H 122/74 07/23/22 14:19 98 H 99 07/23/22 13:30 20 07/23/22 13:30 20 07/23/22 13:01 20 07/23/22 13:01 36.7 C 20 07/23/22 14:14 101 H 99 07/23/22 14:09 101 H 128/77 99 07/23/22 14:04 107 H 99 07/23/22 13:59 98 H 98 07/23/22 13:54 107 H 98 07/23/22 13:52 96 H 112/62 07/23/22 13:49 99 H 98 07/23/22 13:44 104 H 99 07/23/22 13:39 99 H 99 07/23/22 13:37 109 H 104/57 L 07/23/22 13:34 90 98 07/23/22 13:29 89 97 07/23/22 13:24 90 98 07/23/22 13:19 93 H 97 07/23/22 13:14 92 H 97 07/23/22 13:09 98 H 98 07/23/22 13:07 95 H 104/62 05 13:04 91 H 98 07/23/22 12:59 97 H 97 07/23/22 12:54 90 98 07/23/22 12:52 97 H 125/66 05 12:49 92 H 97 07/23/22 12:44 98 H 98 07/23/22 12:39 95 H 99 07/23/22 12:38 91 H 123/78 05 12:34 87 98 05 12:30 20 07/23/22 12:30 20 07/23/22 12:29 86 97 07/23/22 12:24 96 H 98 07/23/22 12:23 93 H 114/76 07/23/22 12:19 95 H 97 07/23/22 12:14 95 H 98 07/23/22 12:09 92 H 97 07/23/22 12:07 99 H 112/75 07/23/22 12:04 88 99 07/23/22 12:00 20 07/23/22 12:00 20 07/23/22 11:59 92 H 97 07/23/22 11:30 18 07/23/22 11:30 18 07/23/22 11:54 86 99 07/23/22 11:53 92 H 114/76 07/23/22 11:49 94 H 99 07/23/22 11:44 89 98 07/23/22 11:39 82 98 07/23/22 11:37 85 110/63 07/23/22 11:34 85 99 07/23/22 11:29 87 99 07/23/22 11:24 86 99 07/23/22 11:22 82 102/57 L 07/23/22 11:19 89 99 07/23/22 11:14 83 99 07/23/22 11:09 84 98 07/23/22 11:07 80 97/55 L 07/23/22 11:04 80 98 07/23/22 11:00 18 07/23/22 11:00 36.8 C 18 07/23/22 10:59 80 98 07/23/22 10:30 18 07/23/22 10:30 18 07/23/22 10:56 80 98/54 L 07/23/22 10:54 81 99 07/23/22 10:49 76 99 07/23/22 10:47 77 104/57 L 07/23/22 10:44 80 99 07/23/22 10:39 86 99 07/23/22 10:37 82 116/71 07/23/22 10:34 80 99 07/23/22 10:29 96 H 100 07/23/22 10:26 75 102/54 L 07/23/22 10:24 82 99 07/23/22 10:19 83 99 07/23/22 10:16 86 93/52 L 07/23/22 10:14 83 98 07/23/22 10:00 16 07/23/22 10:00 16 07/23/22 10:09 83 99 07/23/22 10:08 86 96/56 L 07/23/22 10:04 84 99 07/23/22 09:59 95 H 99 07/23/22 09:57 85 108/65 07/23/22 09:30 18 07/23/22 09:30 18 07/23/22 09:54 91 H 96 07/23/22 09:49 78 97 07/23/22 09:46 87 115/67 07/23/22 09:44 87 97 07/23/22 09:39 85 97 07/23/22 09:36 88 107/62 07/23/22 09:34 92 H 98 07/23/22 09:29 85 97 07/23/22 09:26 92 H 107/64 07/23/22 09:24 89 98 07/23/22 09:19 97 H 98 07/23/22 09:17 84 105/64 07/23/22 09:14 85 98 07/23/22 09:00 18 07/23/22 09:00 36.6 C 18 07/23/22 09:09 105 H 98 07/23/22 09:07 100 H 119/78 07/23/22 09:04 87 100 07/23/22 08:59 94 H 99 07/23/22 08:57 84 109/64 07/23/22 08:54 99 H 98 07/23/22 08:49 87 98 07/23/22 08:46 94 H 104/64 07/23/22 08:30 18 07/23/22 08:30 18 07/23/22 08:44 107 H 98 07/23/22 08:00 16 07/23/22 08:00 16 07/23/22 08:39 87 98 07/23/22 08:36 100 H 104/65 07/23/22 08:34 100 H 97 07/23/22 08:29 89 97 07/23/22 08:26 101 H 102/57 L 07/23/22 08:24 87 98 07/23/22 08:19 85 97 07/23/22 08:16 92 H 105/57 L 07/23/22 08:14 100 H 98 07/23/22 08:09 78 96 07/23/22 07:00 18 07/23/22 07:00 36.8 C 18 07/23/22 08:06 93 H 110/60 07/23/22 08:04 91 H 98 07/23/22 07:59 91 H 99 07/23/22 07:56 90 113/59 L 07/23/22 07:54 93 H 99 07/23/22 07:49 82 99 07/23/22 07:47 88 108/55 L 07/23/22 07:44 94 H 100 07/23/22 07:39 90 98 07/23/22 07:36 97 H 107/60 07/23/22 07:34 96 H 107/56 L 98 07/23/22 07:32 86 106/56 L 07/23/22 07:30 93 H 18 105/59 L 07/23/22 07:29 98 H 99 07/23/22 07:28 93 H 100/56 L 07/23/22 07:26 93 H 102/60 07/23/22 07:24 93 H 106/61 99 07/23/22 07:22 95 H 102/58 L 07/23/22 07:19 89 99 07/23/22 07:20 76 106/61 07/23/22 07:18 85 112/60 07/23/22 07:16 88 120/76 07/23/22 07:14 92 H 120/77 99 07/23/22 07:09 106 H 99 07/23/22 07:04 102 H 98 07/23/22 06:59 88 98 07/23/22 06:54 82 99 07/23/22 06:49 89 98 Coding Level of Care Code None Diagnoses Encounter for trial of labor
[2022-07-23] MEDS ORDERED: HYDROCORTISONE ACETATE 25 MG SUPP PR PRN (20:44)
[2022-07-23] MEDS ORDERED: oxyCODONE/ACETAMINOPHEN 5mg/325mg TAB PO PRN (20:44)
[2022-07-23] MEDS ORDERED: bisacodyL 10 MG SUPP PR PRN (20:44)
[2022-07-23] MEDS ORDERED: DIPHTHERIA/TETANUS/PERTUSSIS Vaccine (Tdap, Age 7+yrs) 0.5mL SYR/VL IM ONE (20:44)
[2022-07-23] MEDS ORDERED: BENZOCAINE 20% AER SPR 82.5 GM CAN EXT PRN (20:44)
--- NOTE | 2022-07-23 20:48 | Delivery Summary ---
Vaginal Delivery Summary Date of Service July 23, 2022 Vaginal Delivery Summary and 2nd Degree LAC Pre-operative Diagnosis: at 40 1/7 srom active labor Post-operative Diagnosis: same Procedure: epidural pitocin augmentation iupc second degree lac and right labial lac and repair EBL: 300cc Anesthesia: epidural Procedure: The patient presented to labor and delivery with srom and early active labor. She underwent and epidural and her contractions spaced. Pitocin augmentation started. She progressed slowly and IUPC placed. Once c/c/0 she labored down for an hour. The patient pushed for approximately 90 min to deliver a viable female infant in reg position. The anterior shoulder was slowly delivered and the rest of the was then delivered without difficulty. The baby was vigorous. The nose and mouth were bulb suctioned and the infant was placed in the maternal abdomen for drying and attention. Cord was clamped and cut at one minute of life. Cord blood and segment obtained. Placenta delivered spontaneous, intact with a three vessel cord. Cervix/sulci/rectum were intact. A second degree perineal laceration and a small righ labial laceration were repaired in the normal standard fashion. Hemostasis obtained with dilute pitocin and fundal massage. Apgars were 8/9. Mother and baby doing well at the end of the delivery. [facility] Vaginal Delivery Charge Delivery Type Details: and 2nd Degree LAC
--- NOTE | 2022-07-23 20:53 | Anesthesia Procedure Note ---
Date of Service July 23, 2022 Anesthesia Post Epidural Note Vital Signs Vital Signs: Temp Pulse Resp BP Pulse Ox 37.0 C 96 H 19 111/59 L 96 07/23/22 19:48 07/23/22 20:49 07/23/22 19:48 07/23/22 20:41 07/23/22 20:49 Pain Intensity Bilateral Lower Abdomen: Pain Intensity: 4 Notes Mental Status: alert / awake / arousable and participated in evaluation Nausea / Vomiting: adequately controlled Pain: adequately controlled Airway Patency, RR, SpO2: stable & adequate BP & HR: stable & adequate Hydration State: stable & adequate Neuraxial Anesthesia: was administered and sensory block is resolving Anesthetic Complications: no major complications apparent and Pt Satisfied with anesthetic care Epidural: Removed without complications and With tip intact
[2022-07-23] MEDS: IBUPROFEN 600 MG TAB PO PRN (21:39)
[2022-07-23] MEDS: ACETAMINOPHEN 325 MG TAB PO PRN (21:39)
[2022-07-24] MEDS: IBUPROFEN 600 MG TAB PO PRN ×3 (02:37→16:46)
[2022-07-24] MEDS: DOCUSATE SODIUM 100 MG CAP PO SCH ×3 (02:54→20:13)
[2022-07-24] MEDS: ACETAMINOPHEN 325 MG TAB PO PRN ×3 (05:39→20:13)
[2022-07-24 07:17] LABS: Hematocrit (blood only) 26.6 % (37.0-47.0)
--- NOTE | 2022-07-24 07:38 | Obstetrical Progress Note ---
Date of Service July 24, 2022 Assessment & Plan (1) Vaginal after (): Plan Doing well this am. Routine pp care. Day #:: 1 Subjective Ambulation: ambulating normally Voiding: no voiding problems Passing Gas:: Yes Diet Tolerance:: regular diet Lochia:: Small Feeding Type:: breast feeding Physical Exam Constitutional WD/WN, vitals as above Respiratory normal respiratory effort, lungs clear to auscultation Cardiovascular RRR, no murmur, no edema Extremities: no calf tenderness and no edema Gastrointestinal (Abdomen) soft, nt, nd, ff/nt at u Results & Data Vital Signs (Past 12 Hours) Vital Signs Temp Pulse Pulse Resp BP BP Pulse Ox 07/24/22 03:10 36.7 C 88 18 101/62 98 07/23/22 23:25 37.0 C 96 H 18 113/73 96 07/23/22 21:44 36.9 C 18 07/23/22 22:42 102 H 115/61 07/23/22 22:12 92 H 122/68 07/23/22 21:41 85 119/67 07/23/22 21:26 86 105/55 L 07/23/22 21:24 93 H 96 07/23/22 21:19 95 H 96 07/23/22 21:14 93 H 96 07/23/22 21:11 93 H 110/58 L 07/23/22 21:09 95 H 96 07/23/22 21:04 89 96 07/23/22 20:59 87 97 07/23/22 20:57 93 H 122/75 07/23/22 20:54 89 97 07/23/22 20:49 96 H 96 07/23/22 20:44 96 H 97 07/23/22 20:41 93 H 111/59 L 07/23/22 20:39 100 H 97 07/23/22 20:37 100 H 106/55 L 07/23/22 20:34 103 H 96 07/23/22 20:29 113 H 96 07/23/22 20:24 114 H 97 07/23/22 20:22 93 H 134/79 07/23/22 20:19 104 H 98 07/23/22 20:14 103 H 97 07/23/22 20:09 111 H 96 07/23/22 20:07 107 H 120/65 07/23/22 20:04 116 H 97 07/23/22 19:59 131 H 98 07/23/22 19:54 152 H 96 07/23/22 19:53 129 H 127/66 07/23/22 19:49 129 H 98 07/23/22 19:48 19 07/23/22 19:48 37.0 C 19 07/23/22 19:44 110 H 98 07/23/22 19:39 117 H 97 07/23/22 19:38 118 H 101/58 L O2 Del Method 07/24/22 03:10 Room Air 07/23/22 23:25 Room Air 07/23/22 21:44 07/23/22 22:42 07/23/22 22:12 07/23/22 21:41 07/23/22 21:26 07/23/22 21:24 07/23/22 21:19 07/23/22 21:14 07/23/22 21:11 07/23/22 21:09 07/23/22 21:04 07/23/22 20:59 07/23/22 20:57 07/23/22 20:54 07/23/22 20:49 07/23/22 20:44 07/23/22 20:41 07/23/22 20:39 07/23/22 20:37 07/23/22 20:34 07/23/22 20:29 07/23/22 20:24 07/23/22 20:22 07/23/22 20:19 07/23/22 20:14 07/23/22 20:09 07/23/22 20:07 07/23/22 20:04 07/23/22 19:59 07/23/22 19:54 07/23/22 19:53 07/23/22 19:49 07/23/22 19:48 07/23/22 19:48 07/23/22 19:44 07/23/22 19:39 07/23/22 19:38
[2022-07-24] MEDS: PRENATAL VITAMIN 1 TAB PO SCH (08:48)
[2022-07-24] MEDS ORDERED: bisacodyL 5 MG TABEC PO SCH (20:00)
[2022-07-25] MEDS: IBUPROFEN 600 MG TAB PO PRN ×2 (00:18→08:54)
[2022-07-25] MEDS: ACETAMINOPHEN 325 MG TAB PO PRN (05:34)
--- NOTE | 2022-07-25 06:10 | Obstetrical Progress Note ---
Date of Service <Fanny Rajwinder Gross DO - Last Filed: 07/25/22 06:42> July 25, 2022 Assessment & Plan <Fanny FranklinNelly Gross DO - Last Filed: 07/25/22 06:42> (1) care following vaginal delivery: Patient is PPD 2 s/p and doing well. - Eating well, voiding well, ambulating well - Vitals reviewed and within normal limits - Pain well controlled with analgesics - OOB, ambulation, diet progression as tolerated - Blood type: A+, GBS neg, rubella immune - Plan to discharge today - After discharge, 6 week follow up with Dr. Gonzalez (2) Vaginal after (): <Arlene Gonzalez MD, FACOG - Last Filed: 07/25/22 07:19> (1) care following vaginal delivery: (2) Vaginal after (): Subjective <Fanny FranklinNelly Gross DO - Last Filed: 07/25/22 06:42> Patient is a 21 yo female who is now PPD #2 following spontaneous vaginal delivery at 40 1/7 weeks. Reports feeling well this morning. She endorses mini mal pain well managed on analgesics. Voiding without issue. Tolerating regular meals overnight and able to ambulate some. She has passed gas. Persistent lochia with some improvement this morning. Currently breast feeding. Review of Systems Denies fever, chills, sweats. Denies SOB, difficulty breathing, chest pain, palpitations, and chest pressure. Denies breast pain. Denies dysuria. Denies headache or changes in vision. Physical Exam <Fanny Rajwinder Gross DO - Last Filed: 07/25/22 06:42> General: Alert and oriented. No acute distress. CV: Regular rate and rhythm. No murmurs. Respiratory: CTA bilaterally. No rhonchi, wheezes, or crackles. No increased work of breathing. Abdomen: Positive bowel sounds. Soft, nontender, non distended. Uterus: Fundus firm and palpable 4 cm below the umbilicus. Lower extremities: No LE edema. No deep calf pain. Results & Data <Fanny Gross DO - Last Filed: 07/25/22 06:42> Vital Signs (Past 12 Hours) Vital Signs Temp Pulse Resp BP Pulse Ox O2 Del Method 07/25/22 00:10 36.5 C 90 18 115/78 98 Room Air 07/24/22 19:50 36.5 C 87 16 121/74 97 Room Air <Arlene Gonzalez MD, FACOG - Last Filed: 07/25/22 07:19> Co-Signing Physician Notes Resident Physician Supervision Note: I interviewed and examined the patient. Discussed with Dr. Gross and agree with findings and plan as documented in the note. Any exceptions or clarifications are listed here: Doing well. Plan d/c. Instructions given. Documented By: Arlene Gonzalez MD, FACOG Resident Activity Tracking <Fanny Gross DO - Last Filed: 07/25/22 06:42> Resident Involvement: Resident Care Provided Care Provided: OB Delivery
[2022-07-25] MEDS: DOCUSATE SODIUM 100 MG CAP PO SCH (08:53)
[2022-07-25] MEDS: PRENATAL VITAMIN 1 TAB PO SCH (08:53)
== END 2022-07-25 13:15 | disposition home or self-care (01) | DRG 807 ==
LOC: OPB 01:15 → 4S1 01:25 → 4E2 07-24 00:07